=== PATIENT | male | born 1990 | race Caucasian/White ===

== ENCOUNTER → 2019-10-29 14:21 | Outpatient (CLI) | payer SELFPAY ==
[2019-10-31 07:23] LABS: SARS-COV-2 TOTAL ABS Nonreactive (Nonreactive)
== END ==
DX: Z20.828 Contact with and (suspected) exposure to other viral communicable diseases (principal)
CPT/HCPCS: 86769; G2023

== ENCOUNTER 2022-03-28 01:01 | Emergency (ER) | payer OTHER, SELFPAY ==
[2022-03-28 01:02] VITALS: BP 128/86; PULSE 97; RESP 16; TEMP 36.6; O2SAT 97; BMI 22.6
--- NOTE | 2022-03-28 01:19 | EDS_ITS ---
HPI History of Present Illness Chief Complaint: Laceration Informant: patient Occured/Mechanism Mechanism/Context: Yes injury and Yes other see comment below Comment: Accidentally injured by a stick when playing in the yard with one of his children Onset/Context/Timing Onset: Today (Around 10 hours ago) Context: Sudden Onset Timing: Continuous Quality of Pain: - (Sore) Location: Left forearm Current Severity: Mild Maximum Severity: Mild Worsened by: Palpation Relieved by: Leaving alone Associated Symptoms Associated Symptoms: Negative for Parasthesia, Weakness or Loss of Funtion Narrative Narrative: Patient sustained an injury to his left volar forearm by a stick when he was playing in the yard earlier. He presents in a delayed fashion because he fell asleep in bed and woke up with the wound bleeding through the dressing. He states the bleeding is controlled now. He takes no medications and is healthy otherwise. He did not think it was a bad wound because it did not hurt initially and still does not. He cleansed it and dressed it himself at home after the injury. Tetanus Immunization: Unknown [facility] Medical History Smoker Medical History no medical history no medical history Allergy/AdvReac Type Severity Reaction Status Date / Time No Known Allergies Allergy Verified 03/28/22 01:32 Social History Smoking Status: Current every day smoker tobacco type: cigarettes ROS ROS ED Constitutional Constitutional ED: Denies chills or fever(s) Musculoskeletal Musculoskeletal: Reports extremity pain; Denies neck pain Integumentary Reports wounds; Denies Abrasions or rash Neurologic Neurologic: Denies paresthesias or weakness EXAM Physical Exam Const Vital Signs: 03/28/22 01:02 Temperature 97.9 F Temperature Source Temporal Pulse Rate 97 Respiratory Rate 16 Blood Pressure 128/86 H Blood Pressure Mean 100 Pulse Ox 97 Oxygen Delivery Method Room Air Positive well nourished and well developed General Appearance ED: well developed and NAD Neck full ROM and supple Back/Spine normal ROM and normal to inspection Extremity Extremity Narrative: Superficial laceration with distraction of the skin edges left mid volar forearm. All flexor tendon function intact. Full range of motion throughout all joints. No tenderness. Neuro oriented x3, CN's II-XII intact bilaterally, no focal motor deficits and no sensory deficits noted Sensorium / Orientation: alert Psych mental status grossly normal and thought process normal Skin Skin Narrative: 3 cm L-shaped partial-thickness laceration left mid volar forearm without signs of infection, gross contamination, or any active bleeding. Rashes: no rashes MDM MDM MDM Narrative Medical decision making narrative: No active bleeding prior to cleansing the wound, given that the skin edges are distracted bleeding will continue to be an issue, less so if we repair it. He is comfortable with repairing the wound which was done see the procedure note. There is a vein just below the surface that is probably the source of the significant bleeding, this was more evident after we cleansed the wound t horoughly and disrupted clots. This laceration is only skin-deep so I do not think he needs systemic antibiotics. Procedures Lacerations L forearm: Length: 3 cm Depth: Skin Shape: L-shaped Prep: Sterile Conditions and Chlorhexadine (scrubbed aggressively) Laceration repair: Lidocaine (1.5cc, 1%), Local and Skin sutures Number of Sutures/Annika: 5 Suture Information: Ethilon and 5-0 Discharge Plan Triage Chief Complaint: Laceration ED Provider: Kyler Reveles Dx/Rx/DC Orders Clinical Impression: Laceration of left forearm, Immunization, tetanus-diphtheria Instructions: ED Laceration Extremity Primary Care Provider: Care Physician,No Primary Referrals: Doctor,Your [Non-Staff] - 7 Days for suture removal (or ER or urgent care) Disposition Disposition: Home, Self Care
[2022-03-28] MEDS: Lidocaine 1% (20 ml mdv) 20 ML Vial INFILT (01:35)
[2022-03-28] MEDS: Diphth,Pertuss(Acell),Tet Vac 0.5 ML Vial IM (01:35)
[2022-03-28 02:00] VITALS: BP 124/80
== END 2022-03-28 02:01 | disposition home or self-care (01) ==
PROVIDERS: Emergency Provider Emergency Medicine; Visit Provider Emergency Medicine
DX: S59.912A Unspecified injury of left forearm, initial encounter (principal); F17.210 Nicotine dependence, cigarettes, uncomplicated; Z23 Encounter for immunization; W26.8XXA Contact with other sharp object(s), not elsewhere classified, initial encounter
CPT/HCPCS: 12002; 90471; 90715; 99283

== ENCOUNTER 2022-11-02 12:40 | Emergency (ER) | payer OTHER, SELFPAY ==
[2022-11-02 12:40] VITALS: BP 108/76; PULSE 74; RESP 18; TEMP 36; O2SAT 96; BMI 20.5
--- NOTE | 2022-11-02 13:02 | EKG12_ITS ---
Test Reason : CP Blood Pressure : / mmHG Vent. Rate : 077 BPM Atrial Rate : 077 BPM P-R Int : 132 ms QRS Dur : 088 ms QT Int : 358 ms P-R-T Axes : 035 078 066 degrees QTc Int : 405 ms Normal sinus rhythm Normal ECG Confirmed by AMI GARCIA, TREVOR ([id number]), editor dictionary JASON LYNN ([id number]) on 11/06/2022 1:02:58 PM Referred By: CLEO/JIAN Confirmed By:MAGED MUELLER MD
--- NOTE | 2022-11-02 13:10 | NURSING ---
NO OLD EKGS
--- NOTE | 2022-11-02 13:12 | EDS_ITS ---
HPI History of Present Illness Chief Complaint: Chest Pain Informant: patient Narrative Narrative: Patient has had 2 weeks of random intermittent chest discomfort lasting anywhere from 10 minutes to 2 hours at a time, nonpleuritic, sometimes squeezing sometimes burning throughout the chest, sometimes sharp on the left side of the chest, occasionally radiates to the scapula bilaterally, sometimes he feels it up the right side of his neck, sometimes it makes him get numbness or tingling in both upper arms or his hands, usually both sides simultaneously when that happens but not every time. Has occurred at night when lying down before but not consistently, has occurred with sitting down, standing up, does not seem to be exertional, he has had episodes where he has done jump rope and another cardio activities, and they have not triggered any of the symptoms neither has eating. He has never had this before. No recent travel out of the area, no history of blood clots in his leg or his lungs or known bleeding disorders in him or family members, no recent immobilization, travel, hospitalization, or surgery or leg injury. No pain in his legs or swelling in them. PFSH PFSH Medical History Smoker Home Medications pantoprazole 40 mg tablet,delayed release 40 mg PO DAILY #30 tabs 11/02/22 [Rx Last Taken Unknown] Allergy/AdvReac Type Severity Reaction Status Date / Time No Known Allergies Allergy Verified 03/28/22 01:32 Social History Smoking Status: Current every day smoker tobacco type: cigarettes ROS ROS ED Constitutional Constitutional ED: Denies chills or fever(s) Eyes Eyes: Denies change in vision or diplopia ENT ENT ED: Denies rhinorrhea or sore throat Cardiovascular Cardiovascular: Denies chest pain, palpitations or racing heartbeat Respiratory/Chest Respiratory/Chest: Reports dyspnea; Denies cough Gastrointestinal Gastrointestinal: Denies abdominal pain, diarrhea, nausea or vomiting Genitourinary Genitourinary ED: Denies dysuria or hematuria Musculoskeletal Musculoskeletal: Denies back pain or neck pain Integumentary Denies abscess or rash Neurologic Neurologic: Reports paresthesias RUE and LUE; Denies headache(s) or weakness Psychiatric Psychiatric: Denies anxiety or suicidal thoughts EXAM Physical Exam Const Vital Signs: 11/02/22 12:40 11/02/22 12:40 Temperature 96.8 F L Temperature Source Temporal Pulse Rate 74 Respiratory Rate 18 Respiratory Effort Normal Non-Labored Blood Pressure 108/76 Blood Pressure Mean 86 Pulse Ox 96 Oxygen Delivery Method Room Air Positive well nourished and well developed General Appearance ED: well developed and NAD HEENT Reports moist mucous membranes HEENT Narrative: Intraoral, sublingual, posterior oropharyngeal exam normal. normocephalic and atraumatic Eyes PERRL and EOMs intact bilaterally Neck full ROM and supple Neck Narrative: Mildly tender, mobile, soft right submandibular single lymph node, no other signs of lymphadenopathy. Resp normal respiratory effort and clear to auscultation bilaterally Cardio regular rate, regular rhythm and no murmurs GI non-tender and non-distended Auscultation: normoactive bowel sounds Palpation: soft Back/Spine no CVA tenderness General Back: other FROM Extremity normal to inspection General Extremety ED: Negative for edema, pulses abnormal or tenderness General Extremity: Negative for edema or pulses abnormal Neuro oriented x3, CN's II-XII intact bilaterally and no sensory deficits noted Sensorium / Orientation: awake and alert Motor Exam: strength 5/5 throughout Skin no rashes or lesions noted and no wounds MDM MDM MDM Narrative Medical decision making narrative: PERC score is 0, therefore no further work-up needed in order to rule out pulmonary embolus for causes of this discomfort which does not sound like a PE anyway. The rest of his work-up is unremarkable except for his chest x-ray, which looks like there may be a very tiny pneumothorax in the apex in the left on my interpretation and that of radiology. Therefore I sent him for a CT to evaluate further, although it is questionable whether this would be causing his symptoms anyway. I reviewed the CT images and the report which I agree with, negative for pneumothorax or anything else acute. This was not a PE study which was not indicated. Patient reassured, I am going to put him on Protonix considering esophageal etiologies, and advised close outpatient follow-up with PCP, he states he has an appointment with Dr. Yee in just less than 1 month. Lab Data Attestation: I reviewed the patient's lab results. Labs: Laboratory Results - last 24 hr 11/02/22 13:18 WBC 7.6 RBC 4.72 Hgb 13.4 Hct 41.9 MCV 88.8 MCH 28.4 MCHC 32.0 RDW Std Deviation 42.5 RDW Coeff of Sabrina 13.0 Plt Count 307 MPV 8.7 Immature Gran % (Auto) 0.400 Neut % (Auto) 50.5 Lymph % (Auto) 37.2 [place] % (Auto) 7.0 Eos % (Auto) 3.7 Baso % (Auto) 1.2 H Absolute Neuts (auto) 3.8 Absolute Lymphs (auto) 2.83 Nucleated RBC % 0 Sodium 139 Potassium 4.2 Chloride 106 Carbon Dioxide 27.0 Anion Gap 6 BUN 14 Creatinine 0.89 Estim Creat Clear Calc 136.24 Est GFR (MDRD) Af Amer 129 Est GFR (MDRD) Non-Af 106 BUN/Creatinine Ratio 15.7 Glucose 97 Calcium 9.3 Troponin I High Sens 4 Radiography Diagnostic Testing: Clinical Impression(s) from Imaging Studies Chest X-Ray 11/02/22 13:25 IMPRESSION: Hyperinflation. Questionable minimal left apical pneumothorax. Electronically Signed: Rajinder Manning MD at 13:54 EDT , Chest CT 11/02/22 15:45 IMPRESSION: No pneumothorax. No acute findings. Incidental 1.5 cm hypoattenuating liver lesion not completely characterized, most likely hemangioma. Electronically Signed: Ivelisse Scherer MD at 16:23 EDT , Rhythm Strip Rhythm Strip: Sinus Rhythm Rate: 75 Ectopy: None EKG Initial EKG: Attestation: I personally reviewed and interpreted this EKG as follows: Interpretation: Sinus Rhythm and No Acute Injury Pattern Comments: nml EKG Discharge Plan Triage Chief Complaint: Chest Pain ED Provider: Kyler Reveles Dx/Rx/DC Orders Clinical Impression: Chest pain, unspecified Prescriptions: New pantoprazole 40 mg tablet,delayed release (DR/EC) 40 mg PO DAILY Qty: 30 0RF Primary Care Provider: Care Physician,No Primary Referrals: Aria Elizabeth MD [Med Staff - [employer]] - Keep Miranda appointment Disposition Disposition: Home, Self Care
--- NOTE | 2022-11-02 13:25 | RAD_ITS ---
STUDY: X-RAY CHEST REASON FOR EXAM: Male, 31 years old. Intermittent chest pain, sob TECHNIQUE: PA and lateral views of the chest. COMPARISON: None. FINDINGS: EKG electrodes are seen. Hyperinflation. The lungs are clear. I suspect a minimal left apical pneumothorax. Normal size heart. Normal mediastinum and kristofer. Normal visualized pulmonary arteries. Normal visualized aortic arch and descending thoracic aorta. Normal visualized thoracic spine. Normal visualized ribs, clavicles, and shoulders. There is no demonstrated abnormality of the visualized soft tissue structures of the upper abdomen. RAD/Chest PA and Lateral IMPRESSION: Hyperinflation. Questionable minimal left apical pneumothorax. Electronically Signed: Rajinder Manning MD at 13:54 EDT ,
[2022-11-02 13:30] LABS: Absolute Lymphocyte Count 2.83 X10^3/uL (0.83-4.51); Absolute Neutrophil Count 3.8 X10^3/uL (2.0-7.7); Basophil# 0.09 X10^3/uL; Basophil% 1.2 % (0-1); Eosinophil# 0.28 X10^3/uL; Eosinophils% 3.7 % (0-5); Hematocrit 41.9 % (40-54); Hemoglobin 13.4 g/dL (13.0-16.5); Lymphocyte # 2.83 X10^3/ul (0.83-4.51); Lymphocyte % 37.2 % (19-41); Mean Corpuscular Hgb 28.4 pg (27.0-32.0); Mean Corpuscular Volume 88.8 fL (80-94); Mean Platelet Vol. 8.7 fl (6.2-12.0); Monocyte# 0.53 X10^3/uL; NRBC Flagged by Analyzer 0 % (0-5); Neutrophil # 3.84 X10^3/uL (2.7-7.7); Neutrophil % 50.5 % (47-70); Platelet Count 307 K/mm3 (150-450); RBC Distribution Width SD 42.5 fl (35.1-43.9); Red Blood Count 4.72 M/mm3 (4.6-6.2); White Blood Count 7.6 K/mm3 (4.4-11.0)
[2022-11-02 13:40] VITALS: RESP 16
[2022-11-02 13:45] LABS: Anion Gap 6 (5-15); BUN 14 mg/dL (7-18); BUN/Creat Ratio 15.7 RATIO (10-20); Calcium,Total 9.3 mg/dL (8.5-10.1); Chloride 106 mmol/L (98-107); Creatinine, Serum 0.89 mg/dL (0.70-1.30); EST Glomerular Filtration Rate 106 mL/min (>60); Est Glom Filt Rate - Afr Amer 129 mL/min (>60); Estimated Creatinine Clearance 136.24 ml/min; Glucose 97 mg/dL (74-106); Potassium 4.2 mmol/L (3.5-5.1); Sodium Level 139 mmol/L (136-145); Troponin-I HS 4 pg/mL (3.0-78.0)
[2022-11-02 14:40] VITALS: RESP 18
[2022-11-02 15:40] VITALS: RESP 18
--- NOTE | 2022-11-02 15:45 | CT_ITS ---
INDICATION: chest pain, poss L ptx EXAMINATION: CT CHEST WITHOUT CONTRAST - CT Chest W/O Contrast Injection TECHNIQUE: Helically acquired images were obtained of the chest. A radiation dose optimization technique was used for this scan. IV Contrast dosage and agent: None. RADIATION DOSAGE (If Supplied By Facility): CTDIvol = ( 7.48 ) mGy, DLP = ( 308.22 ) mGycm COMPARISON: Chest x-ray same day FINDINGS: LUNGS: No consolidation. Minimal reticular opacities in the lung apices likely scarring. LARGE AIRWAYS: Unremarkable. PLEURA: No pleural effusion. No pneumothorax. MEDIASTINUM: Unremarkable. HEART: Not enlarged. CORONARY ARTERIES: Coronary artery calcification is not seen. AORTA/VESSELS: No aortic aneurysm. ESOPHAGUS: Unremarkable. UPPER ABDOMEN: 1.5 cm low-attenuation lesion in the liver not completely characterized. BONES/SOFT TISSUES: No acute abnormality. OTHER/LINES: None. CT/Chest without Contrast IMPRESSION: No pneumothorax. No acute findings. Incidental 1.5 cm hypoattenuating liver lesion not completely characterized, most likely hemangioma. Electronically Signed: Ivelisse Scherer MD at 16:23 EDT ,
[2022-11-02 16:40] VITALS: RESP 18
== END 2022-11-02 16:55 | disposition home or self-care (01) ==
PROVIDERS: Emergency Provider Emergency Medicine; Visit Provider Emergency Medicine
DX: R07.89 Other chest pain (principal); F17.210 Nicotine dependence, cigarettes, uncomplicated
CPT/HCPCS: 71046; 71250; 80048; 84484; 85025; 93005; 99284; A4216

== ENCOUNTER 2022-12-01 12:01 | Emergency (ER) | payer OTHER, SELFPAY ==
[2022-12-01 12:01] VITALS: BP 131/75; PULSE 67; PULSE 69; RESP 14; RESP 19; TEMP 36.4; O2SAT 97; O2SAT 98; BMI 20.5
--- NOTE | 2022-12-01 12:27 | RAD_ITS ---
STUDY: X-RAY CHEST REASON FOR EXAM: Male, 31 years old. Status mid left-sided chest pain. TECHNIQUE: PA and lateral views of the chest. COMPARISON: Comparison is made with prior study dated November 02, 2022. FINDINGS: EKG electrodes are seen. Hyperinflation. The lungs are clear. There is no demonstrated pleural abnormality. Normal size heart. Normal mediastinum and kristofer. Normal visualized pulmonary arteries. Normal visualized aortic arch and descending thoracic aorta. Normal visualized thoracic spine. Normal visualized ribs, clavicles, and shoulders. There is no demonstrated abnormality of the visualized soft tissue structures of the upper abdomen. RAD/Chest PA and Lateral IMPRESSION: Normal x-ray examination of the chest. Electronically Signed: Rajinder Manning MD at 12:50 EDT ,
--- NOTE | 2022-12-01 12:27 | EKG12_ITS ---
Test Reason : SOB Blood Pressure : / mmHG Vent. Rate : 066 BPM Atrial Rate : 066 BPM P-R Int : 176 ms QRS Dur : 088 ms QT Int : 368 ms P-R-T Axes : 061 077 066 degrees QTc Int : 385 ms Atrial-sensed ventricular-paced rhythm Abnormal ECG Confirmed by MARIELA GARCIA, IVAN ([id number]), editor publications JASON LYNN ([id number]) on 12/04/2022 1:06:40 PM Referred By: Confirmed By:IVAN SIERRA MD
--- NOTE | 2022-12-01 12:33 | ED.VIS.CHEST ---
HPI <ONEIL Montoya - Last Filed: 12/01/22 15:41> History of Present Illness Chief Complaint: Chest Pain Narrative Narrative: Patient presenting today due to left-sided inferior chest pain that he has had since this morning. He reports that he was sitting outside on his porch and the pain randomly came on. It is worse with breathing and with movement of his torso. He denies a history of any cardiac conditions as well is a history of blood clots, recent surgeries or procedures, recent immobilization, or recent travel. He feels like he cannot take a deep breath due to the pain. He denies any trauma to his chest, fever, chills, abdominal pain, nausea, and vomiting. He reports that his dad had an OR in his 50s. He denies a PMH of any chronic health conditions. PFSH <ONEIL Montoya - Last Filed: 12/01/22 15:41> PFSH Medical History Back problem Smoker Home Medications lidocaine 5 % patch and menthol 6 % gel topical kit See Rx Instructions topical .COMPLEX #1 ea 12/01/22 [Rx Last Taken Unknown] Allergy/AdvReac Type Severity Reaction Status Date / Time No Known Allergies Allergy Verified 11/30/22 11:02 Family History Father Liver disease Alcoholism Depressed Heart disease Myocardial infarction, Onset Age: 48 Grandmother , age 64 passed heart attack dads mom Myocardial infarction Social History (Updated 11/30/22 @ 11:08 by Vijay Castaneda) adopted: No household members: spouse housing: house number of children: 2 current occupational status: employed current occupation: [employer] current occupational exposures/hazards: No pets and animals: Yes leisure activities: exercise, games and other history of recent travel: No sexually active: Yes Smoking Status: Current every day smoker tobacco type: cigarettes alcohol intake: current details: rarely substance use type: does not use well-balanced diet: daily or most days caffeine: Yes eating out: rarely or never during the past year weight has: remained stable what type of physical activity do you participate in: weight training and other frequency: 3-4 times per week seatbelt use: always do you feel safe at home: Yes ROS <ONEIL Montoya - Last Filed: 12/01/22 15:41> ROS ED Constitutional Constitutional ED: Denies chills, fever(s) or sweats Eyes Eyes: Denies blurry vision or diplopia Cardiovascular Cardiovascular: Denies chest pain or palpitations Respiratory/Chest Respiratory/Chest: Denies cough or dyspnea Gastrointestinal Gastrointestinal: Denies abdominal pain, nausea or vomiting Genitourinary Genitourinary ED: Denies dysuria, hematuria or urinary urgency Musculoskeletal Musculoskeletal: Denies arthralgias or myalgias Integumentary Denies Abrasions or rash Neurologic Neurologic: Denies paresthesias or weakness Psychiatric Psychiatric: Denies anxiety or depression EXAM <Dana Hunt PA - Last Filed: 12/01/22 15:41> Physical Exam Const Vital Signs: 12/01/22 12:01 12/01/22 12:01 12/01/22 14:12 Temperature 97.5 F L Temperature Source Temporal Pulse Rate 69 67 51 L Respiratory Rate 14 19 H 16 Blood Pressure 131/75 H 131/75 H 101/50 L Blood Pressure Mean 93 93 67 Pulse Ox 98 97 97 Oxygen Delivery Method Room Air Room Air Room Air Positive well nourished, well developed and no apparent distress General Appearance ED: well developed HEENT Reports normocephalic and head/scalp atraumatic Mouth ED: Yes moist mucous membranes normal Eyes PERRL and EOMs intact bilaterally Neck full ROM and supple Chest Wall inspection of chest normal Chest Narrative: Patient does have left-sided inferior chest wall tenderness. Resp normal respiratory effort and clear to auscultation bilaterally Cardio regular rate and regular rhythm GI soft to palpation, non-tender, non-distended and no masses Back/Spine normal ROM and normal to inspection Extremity normal to inspection and full ROM Neuro oriented x3, CN's II-XII intact bilaterally, moves all extremities, no focal motor deficits and no sensory deficits noted Sensorium / Orientation: awake and alert Psych mental status grossly normal and thought process normal Skin no rashes or lesions noted and no wounds <Dr. Waqar Castillo DO - Last Filed: 12/01/22 16:00> Physical Exam Const Vital Signs: 12/01/22 12:01 12/01/22 12:01 12/01/22 14:12 Temperature 97.5 F L Temperature Source Temporal Pulse Rate 69 67 51 L Respiratory Rate 14 19 H 16 Blood Pressure 131/75 H 131/75 H 101/50 L Blood Pressure Mean 93 93 67 Pulse Ox 98 97 97 Oxygen Delivery Method Room Air Room Air Room Air <ONEIL Montoya - Last Filed: 12/01/22 15:41> Heart Score History: Slightly/Non-Suspicious ECG: Normal Age: </= 47 years Risk Factors: No Risk Factors Troponin: </= Normal Limit Score: 0 <Dr. Waqar Castillo DO - Last Filed: 12/01/22 16:00> Heart Score Score: 0 [facility] <ONEIL Montoya - Last Filed: 12/01/22 15:41> [facility] MDM Narrative Medical decision making narrative: Patient presenting today due to left inferior chest pain that he has had since this morning. The pain is worsened with range of motion of his torso, bending over, and taking deep breaths. The pain is reproducible to palpation and patient is very tender along the left lateral rib cage and below the left breast. However, labs will be obtained to rule out ACS, anemia, lecture abnormality, and a chest x-ray will be obtained to rule out pneumothorax and other cardiopulmonary abnormality. Patient is PERC and labs are unremarkable. Patient was given Toradol for his pain and would like to have lidocaine patches for home. He will be given a prescription for this. He is having an echo cardiogram on as his PCP is worried he could have Marfan syndrome. He is to follow-up with his PCP and will be discharged home in stable condition. He is comfortable with plan. Lab Data Attestation: I reviewed the patient's lab results. Labs: Laboratory Results - last 24 hr 12/01/22 12:07 WBC 7.1 RBC 4.61 Hgb 13.5 Hct 41.5 MCV 90.0 MCH 29.3 MCHC 32.5 RDW Std Deviation 42.0 RDW Coeff of Sabrina 12.7 Plt Count 289 MPV 8.9 Immature Gran % (Auto) 0.400 Neut % (Auto) 52.6 Lymph % (Auto) 35.3 [place] % (Auto) 6.8 Eos % (Auto) 3.5 Baso % (Auto) 1.4 H Absolute Neuts (auto) 3.7 Absolute Lymphs (auto) 2.50 Nucleated RBC % 0 Sodium 138 Potassium 4.3 Chloride 105 Carbon Dioxide 29.0 Anion Gap 4 L BUN 17 Creatinine 0.88 Estim Creat Clear Calc 137.52 Est GFR (MDRD) Af Amer 131 Est GFR (MDRD) Non-Af 108 BUN/Creatinine Ratio 19.3 Glucose 98 Calcium 9.5 Troponin I High Sens 4 Radiography X-Ray: Read by ED Physician and Read by Radiologist Diagnostic Testing: Clinical Impression(s) from Imaging Studies Chest X-Ray 12/01/22 12:27 IMPRESSION: Normal x-ray examination of the chest. Electronically Signed: Rajinder Manning MD at 12:50 EDT , EKG Initial EKG: Comments: 66 bpm, normal sinus rhythm, no ST elevation, reviewed and interpreted by attending ED physician <Dr. Waqar Castillo, DO - Last Filed: 12/01/22 16:00> [facility] MDM Narrative Medical decision making narrative: Patient presenting today due to left inferior chest pain that he has had since this morning. The pain is worsened with range of motion of his torso, bending over, and taking deep breaths. The pain is reproducible to palpation and patient is very tender along the left lateral rib cage and below the left breast. However, labs will be obtained to rule out ACS, anemia, lecture abnormality, and a chest x-ray will be obtained to rule out pneumothorax and other cardiopulmonary abnormality. Patient is PERC and labs are unremarkable. Patient was given Toradol for his pain and would like to have lidocaine patches for home. He will be given a prescription for this. He is having an echo cardiogram on as his PCP is worried he could have Marfan syndrome. He is to follow-up with his PCP and will be discharged home in stable condition. He is comfortable with plan. This patient was seen with a PA/[employer] Individually assessed they patient including history and physical. I have reviewed everything on the chart that is available and agree with the documentation provided by the PA/[employer] including discussion about the assessment, treatment plan, discussion, and return precautions. Patient with reproducible chest pain on the left side of his ribs. Chest x-ray shows no acute process on my interpretation. Vital signs stable and he is afebrile. EKG normal sinus rhythm at 66 bpm without sign of ischemia or ectopy. Lab work unremarkable. I do not believe he needs a delta troponin. We will give him Lidoderm patches for home. Lab Data Labs: Laboratory Results - last 24 hr 12/01/22 12:07 WBC 7.1 RBC 4.61 Hgb 13.5 Hct 41.5 MCV 90.0 MCH 29.3 MCHC 32.5 RDW Std Deviation 42.0 RDW Coeff of Sabrina 12.7 Plt Count 289 MPV 8.9 Immature Gran % (Auto) 0.400 Neut % (Auto) 52.6 Lymph % (Auto) 35.3 [place] % (Auto) 6.8 Eos % (Auto) 3.5 Baso % (Auto) 1.4 H Absolute Neuts (auto) 3.7 Absolute Lymphs (auto) 2.50 Nucleated RBC % 0 Sodium 138 Potassium 4.3 Chloride 105 Carbon Dioxide 29.0 Anion Gap 4 L BUN 17 Creatinine 0.88 Estim Creat Clear Calc 137.52 Est GFR (MDRD) Af Amer 131 Est GFR (MDRD) Non-Af 108 BUN/Creatinine Ratio 19.3 Glucose 98 Calcium 9.5 Troponin I High Sens 4 Radiography Diagnostic Testing: Clinical Impression(s) from Imaging Studies Chest X-Ray 12/01/22 12:27 IMPRESSION: Normal x-ray examination of the chest. Electronically Signed: Rajinder Manning MD at 12:50 EDT Reading Location ID and State: [address] [place] [address] , Service support , Discharge Plan Triage Chief Complaint: Chest Pain ED Midlevel Provider: Dana Hunt ED Provider: Waqar Castillo Dx/Rx/DC Orders Clinical Impression: Anterior chest wall pain Instructions: ED Chest Wall Pain, Costochondritis Prescriptions: New lidocaine-menthol 5-6 % kit See Rx Instructions .ROUTE .COMPLEX Qty: 1 0RF Rx Instructions: apply LIDIOCAINE PATCH once a day/may leave on for up to 12 hrs; apply MENTHOL GEL 1 - 4 times/day as needed for pain. Stand Alone Forms: Work / School Excuse Primary Care Provider: Aria Elizabeth Referrals: Aria Elizabeth MD [Primary Care Provider] - 3-5 Days Activity Restrictions/Additional Instructions: Please follow-up with your PCP and return for any worsening of your symptoms. Disposition Disposition: Home, Self Care Discharge Date/Time: 12/01/22 14:56
[2022-12-01 12:37] LABS: Absolute Neutrophil Count 3.7 X10^3/uL (2.0-7.7); Basophil% 1.4 % (0-1); Eosinophil# 0.25 X10^3/uL; Eosinophils% 3.5 % (0-5); Hematocrit 41.5 % (40-54); Hemoglobin 13.5 g/dL (13.0-16.5); Lymphocyte % 35.3 % (19-41); Mean Corp Hgb Conc 32.5 g/dL (32-36); Mean Corpuscular Hgb 29.3 pg (27.0-32.0); Mean Platelet Vol. 8.9 fl (6.2-12.0); Monocyte# 0.48 X10^3/uL; Monocyte% 6.8 % (0-10); NRBC Flagged by Analyzer 0 % (0-5); Neutrophil # 3.72 X10^3/uL (2.7-7.7); Neutrophil % 52.6 % (47-70); Platelet Count 289 K/mm3 (150-450); RBC Distribution Width CV 12.7 % (11.6-14.6); Red Blood Count 4.61 M/mm3 (4.6-6.2); White Blood Count 7.1 K/mm3 (4.4-11.0)
[2022-12-01 12:54] LABS: Anion Gap 4 (5-15); BUN 17 mg/dL (7-18); BUN/Creat Ratio 19.3 RATIO (10-20); Calcium,Total 9.5 mg/dL (8.5-10.1); Chloride 105 mmol/L (98-107); Creatinine, Serum 0.88 mg/dL (0.70-1.30); EST Glomerular Filtration Rate 108 mL/min (>60); Est Glom Filt Rate - Afr Amer 131 mL/min (>60); Estimated Creatinine Clearance 137.52 ml/min; Glucose 98 mg/dL (74-106); Potassium 4.3 mmol/L (3.5-5.1); Sodium Level 138 mmol/L (136-145); Troponin-I HS 4 pg/mL (3.0-78.0)
[2022-12-01 14:12] VITALS: BP 101/50; PULSE 51; RESP 16; O2SAT 97
[2022-12-01] MEDS: Ketorolac 15 MG/ML Vial IV (14:51)
== END 2022-12-01 14:56 | disposition home or self-care (01) ==
PROVIDERS: Physician Assistant; Emergency Provider Student in an Organized Health Care Education/Training Program; PCP Internal Medicine; Visit Provider Student in an Organized Health Care Education/Training Program
DX: R07.89 Other chest pain (principal); F17.210 Nicotine dependence, cigarettes, uncomplicated; Z82.49 Family history of ischemic heart disease and other diseases of the circulatory system
CPT/HCPCS: 71046; 80048; 84484; 85025; 93005; 96374; 99282; A4216

== ENCOUNTER → 2023-04-05 | Outpatient (CLI) | payer OTHER, SELFPAY ==
[2023-04-05 11:11] LABS: Cholesterol 117 mg/dL (200); High Density Lipoprotein 53 mg/dL; Triglycerides 61 mg/dL; Very Low Density Lipoprotein 12 mg/dL (5-40); Vitamin D,25 Hydroxy 16.2 ng/mL
== END | disposition home or self-care (01) ==
LOC: LAB 10:23
PROVIDERS: PCP Internal Medicine; Referring Provider Internal Medicine; Visit Provider Internal Medicine
DX: Z13.220 Encounter for screening for lipoid disorders (principal); E55.9 Vitamin D deficiency, unspecified
CPT/HCPCS: 36415; 80061; 82306

== ENCOUNTER → 2023-04-20 | Outpatient (CLI) | payer OTHER, SELFPAY ==
--- NOTE | 2023-04-20 07:51 | CT_ITS ---
ACR Level 3 findings have been noted. An addendum which confirms receipt of the report will follow. STUDY: CT SOFT TISSUE NECK WITH CONTRAST REASON FOR EXAM: Male, 32 years old. Cervical lymphadenopathy RADIATION DOSAGE (If Supplied By Facility): CTDIvol = ( 17.24 ) mGy, DLP = ( 551.41 ) mGycm TECHNIQUE: The patient was scanned in a multi-detector CT scanner. High resolution transaxial imaging was performed following intravenous administration of IV 75mL Isovue-370. Sagittal and coronal images were reconstructed. Individualized dose optimization techniques were used for this CT. COMPARISON: None. FINDINGS: A nonocclusive linear intraluminal filling defect is seen in the right internal jugular vein. This most likely represents a thrombus. It is nonocclusive. Normal bilateral parotid glands. Normal bilateral choker hooker spaces. Normal bilateral parapharyngeal spaces. Normal bilateral carotid spaces. Normal bilateral sublingual and submandibular glands and spaces. Normal visualized nasopharynx. Normal retropharyngeal space. Normal perivertebral space. Normal visualized bilateral faucial tonsils. The visualized tongue, tongue base and oropharynx are normal. There are minimally enlarged lymph nodes of the neck, with preservation of normal alberta architecture, consistent with a reactive lymph hyperplasia. There is no demonstrated solid or cystic mass lesion. There is no abnormal contrast enhancement. Normal epiglottis, bilateral vallecula and hypopharynx. The pre-epiglottic and paraglottic adipose spaces are normal. Normal visualized bilateral piriform sinuses, aryepiglottic folds, vocal cords, and arytenoid-cricoid articulations. Normal subglottic trachea. Normal bilateral lobes of the thyroid gland. Normal visualized pulmonary apices. Opacification of the ethmoid sinuses bilaterally. Normal visualized cervical spine. CT/Soft Tissue Neck WITH Contrast IMPRESSION: Small bilateral benign-appearing cervical lymph nodes. Nonocclusive linear filling defect in the right internal jugular vein suggestive of a thrombus. Electronically Signed: Rajinder Manning MD at 8:35 EST ,
== END | disposition home or self-care (01) ==
PROVIDERS: PCP Internal Medicine; Referring Provider Internal Medicine; Visit Provider Internal Medicine
DX: R59.0 Localized enlarged lymph nodes (principal)
CPT/HCPCS: 70491; Q9967

== ENCOUNTER 2023-05-03 17:00 | Emergency (ER) | payer OTHER, SELFPAY ==
[2023-05-03 17:04] VITALS: BP 119/72; PULSE 91; RESP 18; TEMP 36.4; O2SAT 97; BMI 22.0
== END 2023-05-03 17:20 | disposition left against medical advice (07) ==
LOC: ED 17:31
PROVIDERS: PCP Internal Medicine
DX: R69 Illness, unspecified (principal); Z53.21 Procedure and treatment not carried out due to patient leaving prior to being seen by health care provider

== ENCOUNTER → 2023-05-04 | Outpatient (CLI) | payer OTHER, SELFPAY ==
--- NOTE | 2023-05-04 17:53 | CT_ITS ---
EXAM: CT NECK WITH INTRAVENOUS CONTRAST CLINICAL INDICATION: jugular vein abnormality -- Compare recent scan neck TECHNIQUE: Helically acquired images were obtained of the neck with intravenous contrast. This CT exam was performed using one or more of the following dose reduction techniques: automated exposure control, adjustment of the mA and/or kV according to patient size, and/or use of iterative reconstruction technique. CONTRAST: IV 75mL Isovue-370 COMPARISON: 04/20/2023 FINDINGS: BRAIN AND EXTRA-AXIAL SPACES: There is no mass or fluid collection. NASOPHARYNX: Unremarkable. SUPRAHYOID NECK: Unremarkable. Oropharynx, oral cavity, parapharyngeal space and retropharyngeal space are unremarkable. INFRAHYOID NECK: Unremarkable. The larynx, hypopharynx and supraglottis are unremarkable. SUBMANDIBULAR/PAROTID GLANDS: Unremarkable. Glands are normal in size. THYROID: Unremarkable. No enlarged or calcified nodules. BONES/JOINTS: No acute fracture. SOFT TISSUES: Unremarkable. VASCULATURE: On the arterial images is again linear low density seen within the right jugular vein although it is less distinct on this examination. There is no abnormality seen on delayed images and this likely represents mixing of opacified and unopacified blood. No persistent thrombus is identified. LYMPH NODES: Unremarkable. No lymphadenopathy. LUNG APICES: Unremarkable as visualized. CT/Soft Tissue Neck WITH Contrast IMPRESSION: No evidence of thrombus seen on delayed images today. Initial images do show some low-density filling defects likely representing mixing of opacified and unopacified blood. Electronically Signed: Richmond Cassidy MD at 0:07 [facility] ,
--- OUTSIDE RECORDS SUMMARY | 2023-05-04 17:53 | XMS RPT_ITS | CCD ---
Author Name Unknown Address [address] [place] [id number] Organization [facility] Results Test Name Value Interpretation Reference Range Facil ity Progress note 10-27-2019 Note Date & Type Note Facility 10-27-2019 Note HNO ID: [id number] Author: Steffany Toledo Provider Service: ? Author Type: Physician Type: Progress Notes Filed: 10/27/2019 2:57 PM Note Text: null ( ) Visit Summary for Nir Medley - Gender: Male - Date of : 1990 Date: - Duration: 6 minutes Patient: Nir Medley Provider: Layla Knowles Patient Contact Information Address [address] [place], [place] [phone] Visit Topics I have had Covid symptoms and woiuld like to discuss with a medical proffesional what I should do.: other [Added By: Self - 2019-10-27] Triage Questions Do you have a cough, shortness of breath, difficulty breathing, fever, chills, headache, sore throat, muscles aches, acute change in smell or taste?Answer [yes] Have you been in contact with anyone confirmed with COVID 19 or suspected of having COVID 19 within the past 14 days?Answer [no] Do you have any of the following: weak immune system, asthma or chronic lung disease, kidney problems and on dialysis, active cancer, diabetes or heart disease or high blood pressure, HIV or organ transplant? Answer [no] Do you have any vulnerable family members in the home (, , weak immune system, lung disease, active cancer, elderly)?Answer [no] Are you currently working in a healthcare facility? Answer [no] What is the address where you are currently located? This is important in case of a medical emergency.Answer [no] Please enter a number I can contact you in the event we are disconnected. Answer [[phone]] Please list the reason for your visit today Answer [I have had a cough and chest pain with a fever and was put on quarantine from work pending a doctor visit and Covid testing.] Conversation Transcripts [Notification] You are connected with Layla Knowles, Family Physician.[Notification] Nir Medley is located in [place].[Notification] Nir Medley has shared health history...[Notification] Layla Knowles has issued a referral. Diagnosis Contact w and exposure to oth viral communicable diseases Value: Z20.828 Code: ICD-10-CM Fever, unspecified Value: R50.9 Code: ICD-10-CM Procedures Value: 75995 Code: CPT-4 OFFICE/OUTPATIENT VISIT EST Medications Prescribed No prescriptions ordered Provider Notes We strongly encourage you to share the following record of today's visit with your primary care physician.Contact phone number-Mode of Communication-Chief complaint/HPIa?? pt with 2 days of fever to 101.8, chest pain.he was seen 2 days ago and told to go to ER - was seen in ED but not tested - oxygen was low but no chest xray was done now with fever, mild cough( better ) , mild chest pain is better Subjective 1. Symptoms (Please add Y for YES, No response or N = NO): During this illness, did the patient experience any of the following symptoms?a?? Fever>100.4 F (38 C)-yes Subjective fever (felt feverish)-yes Cough (describe, if yes) -yes - dry Shortness of breath (describe, if yes)- mild Chest pain- mild Sore throat-yes Lost sense of smell or taste (anosmia or ageusia)-no Other symptoms: Congestion/runny nose-no Muscle aches-no Headache-no Nausea, vomiting- nausea Diarrhea (a??3 loose/looser than normal stools in a 24-hour period)- no Other, specify- 2. Chronic conditions/immunosuppression: Does the patient have any of the following medical conditions? (Please add Y if YES, No response or N = NO): Asthma-no COPD or emphysema-no Chronic heart disease (describe)-no Recurrent pneumonia-no Advanced diabetes-no Active or recent cancer-no Significant immune suppression-no Is the patient currently taking immunosuppressant medications (Yes/ No)?a??no If yes, describe- Is the patient over 65?a??no Does the patient live with a chronically ill, immunosuppressed or household member over 65?a??no If yes, describea?? 3. Exposure: Does the patient suspect they have been in close contact with a person with COVID-19?a?? 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 Past Medical History: noneMedications:noneAllergies:NKDAPast Surgical History:Smoking History:yes 1 pack q 3 days , no vaping If female, currently or nursing?:Physical ExamGeneral- alert and oriented in NAdHEENT- nlNeck/lymph- supple No LANResp- no acute resp distress Assessment COVID LIKE ILLNESS1. COVID-19 risk -COVID-Like Illness, Stable (CLI-S) Plan COVID-Like Illness- Stable (CLI-S1. Diagnosis: You have been diagnosed with a viral respiratory infection that may be due to coronavirus (Covid-19). At this time your provider has determined that you do not require an emergency evaluation. If your symptoms progress or worsen, it may be necessary to seek additional care in person. 2. Testing for COVID-19: Lab testing for COVID-19 might be recommended if it is available in your community. a. If your clinician has recommended lab testing for you, see the following: If availa (more content not included)... [facility] Progress note 10-25-2019 Note Date & Type Note Facility 10-25-2019 Note HNO ID: [id number] Author: Steffany Toledo Provider Service: ? Author Type: Physician Type: Progress Notes Filed: 10/25/2019 10:44 AM Note Text: null ( ) Visit Summary for Nir Medley - Gender: Male - Date of : 1990 Date: [id number] - Duration: 2 minutes Patient: Nir Medley Provider: Harman Pena Patient Contact Information Address [address] [place] [address]; [place] [phone] Visit Topics had some covid symptoms and needed a professional opinion on what i should do.: other [Added By: Self - 2019-10-25] Triage Questions Do you have a cough, shortness of breath, difficulty breathing, fever, chills, headache, sore throat, muscles aches, acute change in smell or taste?Answer [Yes, I have had a cough and a sore throat for the last two days. When I cough it builds up to a point at night it keeps me up and I keep going until its hard to breathe. I had a fever yesterday of 101.6 and today of 101.8] Have you been in contact with anyone confirmed with COVID 19 or suspected of having COVID 19 within the past 14 days?Answer [no] Do you have any of the following: weak immune system, asthma or chronic lung disease, kidney problems and on dialysis, active cancer, diabetes or heart disease or high blood pressure, HIV or organ transplant? Answer [no] Do you have any vulnerable family members in the home (infant, , weak immune system, lung disease, active cancer, elderly)?Answer [no] Are you currently working in a healthcare facility? Answer [no] What is the address where you are currently located? This is important in case of a medical emergency.Answer [[address]] Please enter a number I can contact you in the event we are disconnected. Answer [[phone]] Please list the reason for your visit today Answer [I need a professional opinion on how i should handle this. Is it ok for me to be around people at work or should I rest at home?] Conversation Transcripts [Notification] Brenda Alvarez, [employer] Staff, will help you prepare for your visit. She is assisting Harman Pena, Family Physician.[Brenda Alvarez] Osorio, and thank you for connecting. While you are waiting for the doctor, are there any questions I can answer for you about our service? Please contact customer service if you have questions about billing, insurance, or technical issues. Visits work best with a stable WiFi connection, so please make sure you are connected before we begin.[Notification] Brenda Alvarez has left the room.[Notification] Brenda Alvarez, [employer] Staff, will help you prepare for your visit. She is assisting Harman Pena Family Physician.[Brenda Alvarez] Ok, thank you for your patience. The provider will be with you as soon as possible.[Notification] Brenda Alvarez has left the room.[Notification] You are connected with Harman Pena, Family Physician.[Notification] Nir Medley is located in [place].[Notification] Nir Medley has shared health history...[Notification] Harman Pena has added a diagnosis/procedure code.[Notification] Harman Pena has added a diagnosis/procedure code. Diagnosis Contact w and exposure to oth viral communicable diseases Value: Z20.828 Code: ICD-10-CM Procedures Value: 32239 Code: CPT-4 OFFICE/OUTPATIENT VISIT EST Value: 00971 Code: CPT-4 ONLINE E/M BY PHYS/QHP Medications Prescribed No prescriptions ordered Provider Notes Mode of Communication: videoHistory: 28 yo M presents with cough and chest tightness. SOB. Fever. 101.8. Additional pertinent positives: Pertinent negatives: Past medical history: noneMedications: Allergies: NKDALast menstrual period/ (if applicable): Exam: Vitals signs (if available): Weight:General:Objective: Patient is in no apparent distress. Pt is awake, alert, verbal, articulate, appropriate, animated with clear speech. No bizarre or unusual thoughts expressed. Calm and cooperative. On inspection, afebrileAssessment: feverDiagnosis code: Plan: to ER Medications: Home care: Referral or follow up: Medical decision making: viral Antibiotic choice (if applicable):noneAdditional recommendations: If you received a prescription at this visit and you have a question or problem please call [phone] for prescription assistance Please print a copy of this note and send it to your regular doctor, or take it to your next visit so it may be included in your medical record Please see your primary care provider on an annual basis or more frequently if directed The patient voiced understanding and agreement with plan. Electronically signed by: Harman Pena( ) [facility] Summary Purpose Family History No Family History Records FoundNo Family History Records Found Advance Directives No Advanced Directives Records FoundNo Advanced Directives Records Found Additional Source Comments (unrecognized sect ion and content) No Status Records FoundNo Status Records Found INFORMATION SOURCE (unrecogn ized section and content) DATE CREATED AUTHOR AUTHOR'S ORGANIZ ATION 09/05/2020 [facility] FOR RECORDS PERTAINING TO PATIENTS WHO ARE OR HAVE BEEN ENROLLED IN A CHEMICAL DEPENDENCY/SUBSTANCEABUSE PROGRAM, SOME INFORMATION MAY BE OMITTED. This clinical summary was aggregated from multiple sources. Caution should be exercised in using it in the provision of clinical care. This summary normalizes information from multiple sources, and as a consequence, information in this document may materially change the coding, format and clinical context of patient data. In addition, data may be omitted in some cases. CLINICAL DECISIONS SHOULD BE BASED ON THE PRIMARY CLINICAL RECORDS. [facility] [employer] [facility] provides no warranty or guarantee of the accuracy or completeness of information in this document.
== END | disposition home or self-care (01) ==
LOC: CT 17:51
PROVIDERS: PCP Internal Medicine; Referring Provider Internal Medicine; Visit Provider Internal Medicine
DX: I87.1 Compression of vein (principal)
CPT/HCPCS: 70491; Q9967